=== PATIENT | male | born 1965 | race Caucasian/White ===

== ENCOUNTER 2020-09-12 10:54 | Emergency (ER) | payer BC, SELFPAY ==
--- NOTE | ~2020-09-12 | XR_ITS ---
EXAMINATION: XR knee RT 2V INDICATION: Right knee pain TECHNIQUE: Two views of the right knee are obtained. COMPARISON: None available FINDINGS: There is an large knee joint effusion. Mild tricompartmental osteoarthritis is noted. No fr acture is identified. Bone alignment is normal. Calcified atherosclerosis is noted. IMPRESSION: 1. Large knee joint effusion without evidence of acute osseous abnormality. Reviewed, dictated and finalized at location A. CUTTER APPRENTICE
[2020-09-12 11:14] VITALS: BP 165/75; PULSE 85; RESP 18; TEMP 36.8; O2SAT 99
[2020-09-12] MEDS: KETOROLAC (*BKC) 60 MG/2 ML VIAL IM (11:24)
[2020-09-12 11:43] LABS: Basophils Absolute Auto 0.04 K/mm3 (0.00-0.10); Basophils Percent Auto 0.4 % (0.0-1.0); Eosinophils Absolute Auto 0.04 K/mm3 (0.02-0.50); Eosinophils Percent Auto 0.4 % (1.0-6.0); Hematocrit 40.4 % (40.0-54.0); Hemoglobin 13.6 g/dL (14.0-18.0); Immature Granulocyte Absolute 0.04 K/mm3 (0.00-0.00); Immature Granulocyte Percent A 0.4 % (0.0-0.0); Lymphocytes Absolute Auto 0.94 K/mm3 (1.10-4.50); Lymphocytes Percent Auto 10.4 % (18.0-42.0); Mean Corpuscular HGB Conc 33.7 g/dL (32.0-36.0); Mean Corpuscular Hemoglobin 32.7 pg (27.0-31.0); Mean Corpuscular Volume 97.1 fL (78.0-102.0); Mean Platelet Volume 9.3 fl (8.7-11.0); Monocytes Absolute Auto 0.99 K/mm3 (0.10-0.90); Neutrophils Percent Auto 77.4 % (50.0-70.0); Platelet Count Result 239 K/mm3 (150-420); Red Blood Count 4.16 M/mm3 (4.70-6.10); Red Cell Distribution Width 11.5 % (11.6-14.4)
[2020-09-12 11:57] LABS: Alanine Aminotransferase 33 U/L (16-63); Albumin Level 3.4 g/dL (3.4-5.0); Alkaline Phosphatase 70 U/L (46-116); Anion Gap 8 mmol/L (8-16); Aspartate Amino Transferase 18 U/L (15-37); Bilirubin,Total 0.9 mg/dL (0.00-1.00); Blood Urea Nitrogen 12 mg/dL (7-18); Calcium 9.1 mg/dL (8.5-10.1); Carbon Dioxide 29 mmol/L (21-32); Chloride 102 mmol/L (98-108); Estimated CRCL calculation 62 ml/min; Estimated Glomerular Filt Rate > 60; Glucose 111 mg/dL (70-99); Osmolality Calculated 288 mOsm/kg (285-295); Sodium 139 mmol/L (136-145); Total Protein 7.2 g/dL (6.4-8.2); Uric Acid 6.6 mg/dL (3.5-7.2)
[2020-09-12 12:02] LABS: Lactic Acid Reflex 1.2 mmol/L (0.4-2.0)
--- NOTE | 2020-09-12 12:05 | ED.LOWEXIN ---
HPI - Extremity Injury (Lower) General Chief Complaint: Extremity Injury, Lower Stated Complaint: R leg pain and swelling Source: patient and family Mode of arrival: ambulatory Limitations: no limitations History of Present Illness HPI Narrative: this is a 54-year-old gentleman that presents with some right knee pain with joint swelling with no calf pain or tenderness of the knee is warm and tender has a history of gout, and hypertension is currently taking losartan. According to patient and family he does not recollect having any injuries to his right knee has some good range of motion although limited secondary to the swelling and pain but there is no fever chills no calf pain or redness. complaint: knee injury ( knee pain with swelling without injury) Onset (ago): day(s) Injury: Right: knee ( joint swelling and tenderness with palpation) Type of Injury: other ( no injury as far as the patient recollects) Severity scale (1-10): 5 Relieving factors: NSAID, cold therapy and immobilization Exacerbating factors: weight bearing Related Data Home Medications Medication Instructions Recorded Confirmed losartan 25 mg PO DAILY 09/12/20 09/12/20 Allergies Allergy/AdvReac Type Severity Reaction Status Date / Time No Known Allergies Allergy Verified 09/12/20 11:12 Review of Systems Review of Systems: All systems reviewed & are unremarkable except as noted in HPI and below PMFSH Past Medical History Medical History Gout HTN (hypertension) Exam Const: General: no acute distress and alert Orientation/consciousness: patient oriented x3 HENMT: Head: normal to inspection Eyes: Conjunctivae: conjunctivae normal Pupils: Equal, round and reactive pupils present Chest: Chest palpation & inspection: normal inspection of the chest Resp: Effort & Inspection: normal respiratory effort Auscultation: clear to auscultation bilaterally Cardio: Rate: regular rate Rhythm: regular rhythm GI: GI Palp: Yes Soft to palpation Auscultation: normal bowel sounds Back/Spine/Pelvis: Back: no CVA tenderness Skin: General skin exam: normal color Rashes: no rashes Extrem: Other: right knee with some effusion and tenderness with warmth to palpation although has a negative drawer negative Robbie sign, no known injury and no calf pain or swelling no redness in his calf ar Psych: Mental Status: mental status grossly normal Affect: normal affect Course Course Emergency Course: Reassessment the patient after IM Toradol, the patient's pain level has improved and the patient is able to move his right knee with improved range of motion. Vital Signs Vital signs: Vital Signs Temperature 36.8 C 09/12/20 11:14 Pulse Rate 85 09/12/20 11:14 Respiratory Rate 18 09/12/20 11:14 Blood Pressure 165/75 H 09/12/20 11:14 Pulse Oximetry 99 09/12/20 11:14 Temperature 36.8 C 09/12/20 11:14 Pulse Rate 85 09/12/20 11:14 Respiratory Rate 18 09/12/20 11:14 Blood Pressure 165/75 H 09/12/20 11:14 Pulse Oximetry 99 09/12/20 11:14 MDM - Extremity Injury (Lower) Lab Data Result diagrams: 09/12/20 11:37 09/12/20 11:37 Labs: Lab Results 09/12/20 09/12/20 09/12/20 Range/Units 11:37 11:37 11:37 WBC 9.0 (4.8-10.8) K/mm3 RBC 4.16 L (4.70-6.10) M/mm3 Hgb 13.6 L (14.0-18.0) g/dL Hct 40.4 (40.0-54.0) % MCV 97.1 (78.0-102.0) fL MCH 32.7 H (27.0-31.0) pg MCHC 33.7 (32.0-36.0) g/dL RDW 11.5 L (11.6-14.4) % Plt Count 239 (150-420) K/mm3 MPV 9.3 (8.7-11.0) fl Immature Gran % (Auto) 0.4 H (0.0-0.0) % Neut % (Auto) 77.4 H (50.0-70.0) % Lymph % (Auto) 10.4 L (18.0-42.0) % Franklin % (Auto) 11.0 (2.0-11.0) % Eos % (Auto) 0.4 L (1.0-6.0) % Baso % (Auto) 0.4 (0.0-1.0) % Lymph # (Auto) 0.94 L (1.10-4.50) K/mm3 Franklin # (Auto) 0.99 H (0.10-0.90) K/mm3 Eos #
== END 2020-09-12 12:20 | disposition home or self-care (01) ==
PROVIDERS: Emergency Provider Emergency Medicine; PCP Internal Medicine
DX: M10.9 Gout, unspecified (principal)
CPT/HCPCS: 36415; 73560; 80053; 83605; 84550; 85025; 87040; 96372; 99283; J1885

== ENCOUNTER 2021-11-15 11:33 | Outpatient (CLI) | payer BC, SELFPAY ==
--- NOTE | ~2021-11-15 | XR_ITS ---
EXAMINATION: XR knee LT 3V DATE: 11/15/2021 12:19 INDICATION: Left knee pain. TECHNIQUE: 3 views of left knee were obtained. COMPARISON: None. FINDINGS: Bone alignment normal. No fracture. There is mild tricompartmental osteoarthritis character ized by tiny marginal osteophytes. No joint space narrowing. No knee joint effusion. IMPRESSION: 1. Mild left knee osteoarthritis. Reviewed, dictated and finalized at location B. ERONE
--- NOTE | ~2021-11-15 | XR_ITS ---
EXAMINATION: XR foot RT min 3V EXAM DATE: 11/15/2021 12:18 INDICATION: Right 1st MTP Joint Pain. TECHNIQUE: Right foot dorsoplantar, lateral and oblique projections obtained and reviewed. There is no prior study for comparison. FINDINGS: There are juxta-articular erosions at the right 1st metatarsal head and smaller at the prox imal phalangeal base. There is large soft tissue swelling over the 1st metatarsal head. Appearance is consistent with gout. There is moderate hallux valgus. There is mild lateral subluxation of the 1st proximal phalanx. Mild polyarticular midfoot primary osteoarthritis. There are no acute fractures gamaliel ntified. No radiopaque foreign bodies identified. IMPRESSION: 1. Right 1st MTP gout. 2. Hallux valgus. 3. Osteoarthritis. Reviewed, dictated and finalized at location A. INVESTIGATOR
== END 2021-11-15 11:34 | disposition home or self-care (01) ==
LOC: CHSIMG 11:36
PROVIDERS: PCP Internal Medicine; Visit Provider Internal Medicine
DX: M25.571 Pain in right ankle and joints of right foot (principal); M25.562 Pain in left knee
CPT/HCPCS: 73562; 73630

== ENCOUNTER 2021-11-19 09:12 | Outpatient (CLI) | payer BC, SELFPAY ==
[2021-11-19 09:28] LABS: Appearance Urine Clear (Clear); Bilirubin Urine Negative (Negative); Color Urine Light Yellow (Yellow); Glucose Urine UA Negative (Negative); Ketones Urine Negative (Negative); Leukocyte Esterase Ur Negative (Negative); Nitrate Urine Negative (Negative); Protein Urine Negative (Negative); Specific Grav Ur 1.015 (1.010-1.020); Urobilinogen Urine 0.2 mg/dL (0.2-1.0); pH Urine 5.5 (5.0-8.0)
[2021-11-19 09:29] LABS: Basophils Percent Auto 1.2 % (0.0-1.0); Eosinophils Absolute Auto 0.17 K/mm3 (0.02-0.50); Eosinophils Percent Auto 2.1 % (1.0-6.0); Hematocrit 45.1 % (40.0-54.0); Hemoglobin 14.8 g/dL (14.0-18.0); Immature Granulocyte Absolute 0.02 K/mm3 (0.00-0.00); Immature Granulocyte Percent A 0.2 % (0.0-0.0); Lymphocytes Absolute Auto 3.07 K/mm3 (1.10-4.50); Lymphocytes Percent Auto 37.2 % (18.0-42.0); Mean Corpuscular HGB Conc 32.8 g/dL (32.0-36.0); Mean Corpuscular Hemoglobin 30.8 pg (27.0-31.0); Mean Corpuscular Volume 93.8 fL (78.0-102.0); Mean Platelet Volume 9.6 fl (8.7-11.0); Monocytes Absolute Auto 0.72 K/mm3 (0.10-0.90); Monocytes Percent Auto 8.7 % (2.0-11.0); Neutrophils Absolute Auto 4.2 K/mm3 (1.7-7.2); Neutrophils Percent Auto 50.6 % (50.0-70.0); Platelet Count Result 434 K/mm3 (150-420); Red Blood Count 4.81 M/mm3 (4.70-6.10); White Blood Count 8.3 K/mm3 (4.8-10.8)
[2021-11-19 09:51] LABS: Add Urine Microscopic? YES; Bacteria Urine None seen /hpf; Blood Urine Trace-Intact (Negative); RBC Urine None seen /hpf (0-2); Squamous Epithelial Cell Urine Rare /hpf (Few); WBC Urine None seen /hpf (0-3)
[2021-11-19 10:19] LABS: Alanine Aminotransferase 23 U/L (16-63); Albumin Level 3.4 g/dL (3.4-5.0); Alkaline Phosphatase 83 U/L (46-116); Anion Gap 8 mmol/L (8-16); Aspartate Amino Transferase 13 U/L (15-37); Bilirubin,Total 0.5 mg/dL (0.00-1.00); Blood Urea Nitrogen 10 mg/dL (7-18); Calcium 9.3 mg/dL (8.5-10.1); Carbon Dioxide 32 mmol/L (21-32); Chloride 102 mmol/L (98-108); Cholesterol 193 mg/dL (0-200); Estimated Glomerular Filt Rate > 60; Glucose 95 mg/dL (70-99); HDL Direct 42 mg/dL (40-60); LDL Cholesterol Calculated 135 mg/dL (<130); Osmolality Calculated 293 mOsm/kg (285-295); Potassium 4.6 mmol/L (3.5-5.1); Sodium 142 mmol/L (136-145); Total Protein 7.3 g/dL (6.4-8.2); Triglycerides 78 mg/dL (0-150); Uric Acid 6.6 mg/dL (3.5-7.2)
[2021-11-19 10:25] LABS: Prostate Specific Antigen < 0.1 ng/mL (< OR = 4.0)
== END 2021-11-19 09:13 | disposition home or self-care (01) ==
LOC: CHSLAB 09:14
PROVIDERS: PCP Internal Medicine; Visit Provider Internal Medicine
DX: Z00.00 Encounter for general adult medical examination without abnormal findings (principal); M79.671 Pain in right foot; M25.562 Pain in left knee; Z12.5 Encounter for screening for malignant neoplasm of prostate
CPT/HCPCS: 36415; 80053; 80061; 81001; 84153; 84550; 85025

== ENCOUNTER 2022-01-31 08:06 | Outpatient (CLI) | payer BC, SELFPAY ==
[2022-01-31 08:45] LABS: Uric Acid 5.4 mg/dL (3.5-7.2)
== END 2022-01-31 08:07 | disposition home or self-care (01) ==
LOC: CHSLAB 08:07
PROVIDERS: PCP Internal Medicine; Visit Provider Internal Medicine
DX: M10.9 Gout, unspecified (principal)
CPT/HCPCS: 36415; 84550

== ENCOUNTER 2023-01-07 09:15 | Outpatient (CLI) | payer BC, SELFPAY ==
[2023-01-07 09:25] LABS: Basophils Absolute Auto 0.09 K/mm3 (0.00-0.10); Basophils Percent Auto 0.8 % (0.0-1.0); Eosinophils Absolute Auto 0.19 K/mm3 (0.02-0.50); Eosinophils Percent Auto 1.7 % (1.0-6.0); Hematocrit 44.9 % (40.0-54.0); Hemoglobin 15.1 g/dL (14.0-18.0); Immature Granulocyte Absolute 0.03 K/mm3 (0.00-0.00); Immature Granulocyte Percent A 0.3 % (0.0-0.0); Lymphocytes Absolute Auto 2.94 K/mm3 (1.10-4.50); Lymphocytes Percent Auto 26.8 % (18.0-42.0); Mean Corpuscular HGB Conc 33.6 g/dL (32.0-36.0); Mean Corpuscular Hemoglobin 31.9 pg (27.0-31.0); Mean Corpuscular Volume 94.9 fL (78.0-102.0); Mean Platelet Volume 9.2 fl (8.7-11.0); Monocytes Absolute Auto 1.28 K/mm3 (0.10-0.90); Monocytes Percent Auto 11.7 % (2.0-11.0); Neutrophils Absolute Auto 6.5 K/mm3 (1.7-7.2); Neutrophils Percent Auto 58.7 % (50.0-70.0); Platelet Count Result 285 K/mm3 (150-420); Red Blood Count 4.73 M/mm3 (4.70-6.10); Red Cell Distribution Width 12.9 % (11.6-14.4)
[2023-01-07 09:28] LABS: Appearance Urine Clear (Clear); Bilirubin Urine 1+ (Negative); Blood Urine Trace-Intact (Negative); Color Urine Yellow (Yellow); Glucose Urine UA Negative (Negative); Ketones Urine Trace (Negative); Leukocyte Esterase Ur Trace LEU/UL (Negative); Nitrate Urine Negative (Negative); Protein Urine Negative (Negative)
[2023-01-07 09:33] LABS: Add Urine Microscopic? YES; Bacteria Urine Rare /hpf; RBC Urine 0-2 /hpf (0-2); WBC Urine 0-3 /hpf (0-3)
[2023-01-07 10:08] LABS: Alanine Aminotransferase 38 U/L (16-63); Albumin Level 3.6 g/dL (3.4-5.0); Alkaline Phosphatase 83 U/L (46-116); Anion Gap 9 mmol/L (8-16); Aspartate Amino Transferase 26 U/L (15-37); Bilirubin,Total 1.2 mg/dL (0.00-1.00); Blood Urea Nitrogen 9 mg/dL (7-18); Carbon Dioxide 31 mmol/L (21-32); Chloride 103 mmol/L (98-108); Cholesterol 194 mg/dL (0-200); Estimated Glomerular Filt Rate > 60; Free T4 Free Thyroxine 0.98 ng/dL (0.76-1.46); Glucose 121 mg/dL (70-99); HDL Direct 96 mg/dL (40-60); LDL Cholesterol Calculated 92 mg/dL (<130); Osmolality Calculated 295 mOsm/kg (285-295); Potassium 4.7 mmol/L (3.5-5.1); Sodium 143 mmol/L (136-145); Thyroid Stimulating Hormone 0.91 uIU/mL (0.36-3.74); Total Protein 7.4 g/dL (6.4-8.2); Triglycerides 30 mg/dL (0-150)
[2023-01-07 10:18] LABS: Prostate Specific Antigen < 0.1 ng/mL (< OR = 4.0)
== END 2023-01-07 09:16 | disposition home or self-care (01) ==
LOC: CHSLAB 09:17
PROVIDERS: PCP Internal Medicine; Visit Provider Nurse Practitioner Family
DX: Z00.00 Encounter for general adult medical examination without abnormal findings (principal); I10 Essential (primary) hypertension
CPT/HCPCS: 36415; 80053; 80061; 81001; 84153; 84439; 84443; 85025; G0103